=== PATIENT | female | born 1985 | race Hispanic/Latino ===

== ENCOUNTER 2018-07-04 18:29 | Emergency (ER) | payer SELFPAY ==
[2018-07-04] MEDS ORDERED: Mag-Al 1200 mg/1200 mg/30 ML UDCUP ONE (19:12)
[2018-07-04] MEDS ORDERED: Lidocaine Viscous Sol 2% 15 ml UD Cup ONE (19:37)
== END 2018-07-04 20:08 | disposition home or self-care (01) ==
LOC: ERS 18:29
DX: K21.9 Gastro-esophageal reflux disease without esophagitis (principal); J02.9 Acute pharyngitis, unspecified
CPT/HCPCS: 99283

== ENCOUNTER 2018-10-15 09:44 | Outpatient (CLI) | payer OTHER ==
--- NOTE | 2018-10-15 11:46 | ULT ---
ABDOMINAL ULTRASOUND: Date: 10-15-18 Comparison: None. History: 33-year-old female with abdominal pain. Technique: Multiplanar grayscale sonographic imaging of the abdomen provided. FINDINGS: Visualized pancreas unremarkable. Bowel gas and body habitus limits assessment of the distal body and tail of the pancreas. Imaged IVC and aorta appear within normal limits. No focal liver lesion is jesus ntified. There is no gallbladder wall thickening or pericholecystic fluid. No gallstones are seen. The sonogra pher reports a negative Lee's sign. CBD measures 3 mm, within normal limits. Right kidney measures 9.3 cm craniocaudal dimension and demonstrates no stone, hydronephrosis or mass lesion. Left kidney measures 9.3 cm craniocaudal dimension and demonstrates no evidence for stone, hydronephr osis or mass. Spleen measures up to 8.3 cm, within normal limits. IMPRESSION: Unremarkable abdominal ultrasound. POS: OFF
== END 2018-10-15 09:45 | disposition home or self-care (01) ==
LOC: BICULT 09:44
PROVIDERS: ATTEND Family Medicine
DX: R10.9 Unspecified abdominal pain (principal)
CPT/HCPCS: 76700

== ENCOUNTER 2024-10-02 20:13 | Emergency (ER) | payer SELFPAY ==
[~2024-10-02 20:13] MED LIST: Iopamidol-370 76% 500 ML MDV (1 ML CHARGE) ONE
[2024-10-02 20:31] LABS: Pregnancy Test - Urine (BHCG) Negative (Negative)
[2024-10-02 20:32] LABS: Pregu Control Background? CLEAR/WHITE (CLR/WHITE); Pregu Control Bar Appear? YES (CONTROL BAR); Specific Gravity 1.023 (1.002-1.036)
[2024-10-02 20:39] LABS: #Basophils 0.06 10x3/uL (0.0-0.2); %Basophils 0.5 % (0.0-1.0); %Lymphocytes 12.8 % (21.0-51.0); %Monocytes 4.3 % (0.0-10.0); %Neutrophils 81.1 % (42.0-75.0); Hematocrit 43.4 % (36.0-47.0); Hemoglobin 15.3 g/dL (12.0-16.0); Mean Corpuscular HGB CONC 35.3 g/dL (32.0-36.0); Mean Corpuscular Hemoglobin 31.4 pg (27.0-31.0); Mean Corpuscular Volume 89.1 fL (78.0-98.0); Platelet Count 305 10x3/uL (130-400); RBC Distribution Width 12.1 % (11.5-14.5); Red Blood Cell (RBC) Count 4.87 mill/uL (4.20-5.40)
[2024-10-02 20:54] LABS: ALT (SGPT) 38 U/L (8-55); AST (SGOT) 23 U/L (5-34); Albumin 4.2 g/dL (3.5-5.0); Alkaline Phosphatase 102 U/L (40-110); Anion Gap 14 mmol/L (10-20); BUN (Urea Nitrogen) 9 mg/dL (7.0-18.7); Bilirubin, Total 0.3 mg/dL (0.2-1.2); Calc. Creatinine Clearance 0 mL/min (70-130); Calcium 8.8 mg/dL (7.8-10.44); Carbon Dioxide 21 mmol/L (22-29); Chloride 107 mmol/L (98-107); Estimated GFR 100; Globulin 4.3 g/dL (2.4-3.5); Glucose 132 mg/dL (70-105); Lipase 25 U/L (8-78); Potassium 3.8 mmol/L (3.5-5.1); Protein, Total 8.5 g/dL (6.0-8.3); Sodium 138 mmol/L (136-145)
[2024-10-02] MEDS ORDERED: fentaNYL 50 mcg/mL 1 mL Vial ONE (21:56)
[2024-10-02 22:03] LABS: Bacteria/HPF None Seen HPF (None Seen); Bilirubin Negative (Negative); Blood, Urine 2+ (Negative); CAUTI Indications for Culture Pelvic or flank pain; Clarity Clear (Clear); Glucose, Urine (Dipstick) Normal (Negative); Ketone, Urine Negative (Negative); Leukocyte Negative Leu/uL (Negative); Nitrite Negative (Negative); Protein, Urine (Dipstick) Negative (Neg-Trace); Specific Gravity, Urine 1.025 (1.002-1.036); Urobilinogen Normal mg/dL (Less than 2); WBC/HPF 0-3 HPF (0-3)
[2024-10-02 22:04] LABS: Urine Culture Reflex No No
[2024-10-02 22:14] LABS: Troponin I Less than 0.010 ng/mL (< 0.028)
[2024-10-02] MEDS ORDERED: Pantoprazole 40 MG VIAL ONE (22:33)
[2024-10-03] MEDS ORDERED: Amoxicillin/Potassium Clav 875 MG TAB ONE (00:40)
[2024-10-03] MEDS ORDERED: predniSONE 20 MG TAB ONE ×2 (00:40→00:41)
== END 2024-10-03 00:47 | disposition home or self-care (01) ==
LOC: ERS 20:13
DX: K52.9 Noninfective gastroenteritis and colitis, unspecified (principal); K76.0 Fatty (change of) liver, not elsewhere classified
CPT/HCPCS: 36415; 74177; 80053; 81001; 81025; 83690; 84484; 85025; 93005; 96361; 96374; 96375; J2470; J3010; J7512; Q9967